=== PATIENT | male | born 1975 | race Caucasian/White ===

== ENCOUNTER 2016-09-22 23:10 | Emergency (ER) | payer MEDICAID ==
[~2016-09-22] VITALS: Ht 190.5 cm; Wt 140.6 kg
[2016-09-22] MEDS ORDERED: SUBOXONE 12 MG1 EACH PO (23:32)
== END 2016-09-23 00:55 | disposition short-term general hospital (02) ==
LOC: ER 23:10
DX: R07.89 Other chest pain (principal); F17.210 Nicotine dependence, cigarettes, uncomplicated; Z88.2 Allergy status to sulfonamides; Z88.5 Allergy status to narcotic agent

== ENCOUNTER 2016-10-12 21:08 | Emergency (ER) | payer MEDICAID ==
[~2016-10-12] VITALS: Ht 190.5 cm; Wt 136.1 kg
[~2016-10-12 21:08] MED LIST: SUBOXONE 12 MG1 EACH PO
== END 2016-10-12 22:44 | disposition short-term general hospital (02) ==
LOC: ER 21:08
DX: S93.402A Sprain of unspecified ligament of left ankle, initial encounter (principal); X50.1XXA Overexertion from prolonged static or awkward postures, initial encounter